=== PATIENT | male | born 1970 | race Caucasian/White ===

== ENCOUNTER 2020-03-17 10:22 | Emergency (ER) | payer BC ==
[~2020-03-17] VITALS: Ht 182.9 cm; Wt 88.5 kg
[2020-03-17] MEDS ORDERED: FLEXERIL PO (11:26)
[2020-03-17] MEDS ORDERED: NORCO 5-325 TA1 EAC2 PO (11:26)
[2020-03-17 11:56] VITALS: BP 133/74
== END 2020-03-17 11:57 | disposition home or self-care (01) ==
LOC: M.ERS 10:22
DX: S22.080A Wedge compression fracture of T11-T12 vertebra, initial encounter for closed fracture (principal); S16.1XXA Strain of muscle, fascia and tendon at neck level, initial encounter; E11.9 Type 2 diabetes mellitus without complications; K21.9 Gastro-esophageal reflux disease without esophagitis; Z88.5 Allergy status to narcotic agent; V49.49XA Driver injured in collision with other motor vehicles in traffic accident, initial encounter; Y93.89 Activity, other specified; Y92.89 Other specified places as the place of occurrence of the external cause; Y99.8 Other external cause status